=== PATIENT | female | born 1965 | race Two or more races ===

== ENCOUNTER → 2025-11-01 | Emergency (ER) | payer OTHER ==
[~2025-11-01] VITALS: Ht 154.9 cm; Wt 55.8 kg
[~2025-11-01] MED LIST: FEXO-65 PO; HYDR-500 PO; ONDA4TAB11 PO
[2025-11-01] MEDS: ONDANSETRON 4 MG TAB.RAPDIS SL ONE (14:38)
[2025-11-01 14:47] VITALS: BP 116/73; TEMP 98.1; O2SAT 98
== END | disposition home or self-care (01) ==
LOC: ER 19:06
DX: L29.9 Pruritus, unspecified (principal); R11.0 Nausea
CPT/HCPCS: 99283; Q0177; Q0162

== ENCOUNTER 2025-11-09 13:28 | Emergency (ER) | payer OTHER ==
[~2025-11-09] VITALS: Ht 152.4 cm; Wt 54.4 kg
[2025-11-09 13:44] VITALS: BP 113/54; TEMP 98; O2SAT 98
== END 2025-11-09 15:13 | disposition home or self-care (01) ==
LOC: ER 14:09
DX: R51.9 Headache, unspecified (principal); R42 Dizziness and giddiness; Z53.21 Procedure and treatment not carried out due to patient leaving prior to being seen by health care provider